=== PATIENT | female | born 1980 | race Hispanic/Latino ===

== ENCOUNTER 2024-10-22 14:48 | Emergency (ER) | payer SELFPAY ==
[2024-10-22 14:52] VITALS: BP 129/85
[2024-10-22 15:12] LABS: % Basophils 0.3 % (0-2); % Eosinophils 0.8 % (0-6); % Immature Granulocytes 0.4 % (0-0.5); % Lymphocytes 13.8 % (20.5-51.1); % Monocytes 6.3 % (1.7-9.3); % Neutrophils 78.4 % (42.2-75.2); Absolute Eosinophils 0.1 10^3/uL (0-0.7); Absolute Immature Granulocytes 0.1 10^3/uL (0-0.05); Absolute Lymphocytes 1.9 10^3/uL (1.2-3.4); Absolute Monocytes 0.8 10^3/uL (0.1-0.6); Absolute Neutrophils 10.5 10^3/uL (1.4-6.5); Hematocrit 42.2 % (37.0-47.0); Hemoglobin 13.7 g/dL (12.0-16.0); Mean Corp Hgb Conc. 32.5 g/dL (33.0-37.0); Mean Corpuscular Hgb 28.2 pg (27.0-31.0); Mean Corpuscular Volume 86.8 fL (81.0-99.0); Mean Platelet Volume 9.9 fL (7.4-10.4); Nucleated Red Blood Cells % 0 %; Platelet Count 230 10^3/uL (130-400); Red Blood Cell Count 4.86 10^6/uL (4.20-5.40); Red Cell Dist. Width 13.8 % (11.5-14.5); White Blood Cell Count 13.4 10^3/uL (4.8-10.8)
[2024-10-22 15:20] LABS: Urine Albumin 2+ (Neg - Trace); Urine Bilirubin Negative (Negative); Urine Character Cloudy (Clear); Urine Color Yellow; Urine Glucose Negative (Negative); Urine Ketone Negative (Negative); Urine Leukocyte 3+ (Negative); Urine Nitrite Negative (Negative); Urine Occult Blood 4+ (Negative); Urine Urobilinogen Negative (Neg - 1+)
[2024-10-22 15:23] LABS: HCG, Serum Qualitative Screen Negative
[2024-10-22 15:27] LABS: ALT (SGPT) 62 U/L (0-35); AST (SGOT) 59 U/L (14-36); Albumin 4.2 g/dl (3.5-5.0); Alkaline Phosphatase 137 U/L (38-126); Blood Urea Nitrogen 14 mg/dl (7-17); Calcium 9.2 mg/dl (8.4-10.2); Carbon Dioxide 25 mmol/L (22-30); Chloride 104 mmol/L (98-107); Glucose 98 mg/dl (70-99); Lipase 303 U/L (23-300); Potassium 4.4 mmol/L (3.5-5.1); Sodium 137 mmol/L (135-145); Total Bilirubin 0.3 mg/dl (0.2-1.3); Total Protein 7.9 g/dl (6.3-8.2); eGFR > 60.00
[2024-10-22 15:39] LABS: Urine Squamous Cell 0-2 /LPF (Few)
[2024-10-22 15:40] LABS: Urine Bacteria Few (Negative); Urine White Cell 50-60 /HPF (0-5)
--- NOTE | 2024-10-22 15:41 | ED.GENMED ---
Addendum entered and electronically signed by Jeffrey Huffman PA-C 10/25/24 07:44:
UCx positive for pansensitive E coli, pt on cefdinir. No changes
Original Note:
History of Present Illness
General
Chief Complaint: Flank Pain
Source: patient
Exam Limitations: none
Time Seen by Provider: 10/22/24 15:41
History of Present Illness
History of Present Illness:
44yoF with no significant past medical history presenting with her for evaluation of flank pain. She started with pain with urination 2 days ago. She also reports that her urine appears cloudy. She developed left flank pain yesterday.
Flank pain is severe and coming in waves. She reports chills but denies any fevers. She is otherwise asymptomatic and denies any nausea, vomiting, diarrhea, constipation. No prior history of similar symptoms in the past.
Phy Exam
Physical Exam
Physical Exam:
Patient tearful due to pain, non-toxic
General Physical Exam
General Presentation: well appearing
General Skin: warm and dry
General Habitus: normal
General Mental: alert
ENT Exam
ENT Exam: normocephalic
Pulmonary Exam
Pulmonary Exam: lungs clear, no respiratory distress, no rales, no crackles and no rhonchi
Gastrointestinal Exam
Gastrointestinal Exam: soft, non distended, cva tenderness and other (+L CVA tenderness. There is mild LLQ tenderness. Abdomen soft, non-distended. No rebound or guarding.)
Neurological Exam
Neurological Exam: alert
[place] Coma Scale
Eye Opening: Spontaneous
Verbal Response: Oriented
Motor Response: Obeys Commands
GCS Total Score: 15
Skin Exam
Skin Exam: normal color and warm/dry
Psychiatric Exam
Psychiatric Exam: normal mood/affect
Course
Orders/Labs/Results
Orders:
Orders
10/22/24 14:56
Test Result ONCE
10/22/24 15:05
Complete Blood Count/With Diff Urgent
Comprehensive Metabolic Panel Urgent
HCG, Serum Qualitative Screen Urgent
Lipase Urgent
Urinalysis Reflex To Culture Urgent
Date Specimen was Collected: 10/22/24
Time Specimen was Collected: 14:56
Urine Microscopic Reflex Cult Urgent
Urine Culture Urgent
AHSAN Source: U
Specimen Description:
Date Specimen was Collected: 10/22/24
Time Specimen was Collected: 14:56
10/22/24 15:59
CT Abd/pel Without Iv Or Oral Urgent
Comment:
Reason For Exam: L flank pain radiating to LLQ
0.9% Sodium Chloride 1000 ml [Nss] 1,000 ml IV BOLUS
HYDROmorphone [Dilaudid] 0.5 mg IV NOW STA
Ketorolac [Toradol] 15 mg IV NOW STA
10/22/24 17:55
CefTRIAXone [Rocephin] 2,000 mg IV NOW STA
10/22/24 18:00
Sterile Water [Sterile Water For Injection] 20 ml .ROUTE .STK-MED
Abnormal Lab Results
10/22/24
15:05
WBC 13.4 H 10^3/uL
(4.8-10.8)
MCHC 32.5 L g/dL
(33.0-37.0)
Abs Immat Gran (auto) 0.1 H 10^3/uL
(0-0.05)
Absolute Neuts (auto) 10.5 H 10^3/uL
(1.4-6.5)
Absolute Monos (auto) 0.8 H 10^3/uL
(0.1-0.6)
Neutrophils % 78.4 H %
(42.2-75.2)
Lymphocytes % 13.8 L %
(20.5-51.1)
AST 59 H U/L
(14-36)
ALT 62 H U/L
(0-35)
Alkaline Phosphatase 137 H U/L
(38-126)
Lipase 303 H U/L
(23-300)
Ur Occult Blood Reflex 4+ A
(Negative)
Leukocyte Esterase Rfl 3+ A
(Negative)
Urine RBC 11-15 A /HPF
(0-2)
Urine WBC (Reflex) 50-60 A /HPF
(0-5)
Urine Bacteria (Reflex) Few A
(Negative)
Urine Albumin (Reflex) 2+ A
(Neg - Trace)
10/22/24 15:05
10/22/24 15:05
Vital Signs
Temp: 97.7 F
Initial and Last Documented VS:
Initial Vital Signs
Temp Pulse Resp BP Pulse Ox
98.9 F 89 20 129/85 100
10/22/24 14:52 10/22/24 14:52 10/22/24 14:52 10/22/24 14:52 10/22/24 14:52
Last Documented Vital Signs
Temp Pulse Resp BP Pulse Ox
97.7 F 75 18 124/74 100
10/22/24 17:57 10/22/24 18:16 10/22/24 18:16 10/22/24 18:16 10/22/24 18:16
MDM/Problems Addressed
Differential Diagnosis Includes:
44yoF here with L flank pain since yesterday. Started with pain with urination 2 days ago. C/o chills, denies fevers. No n/v. VSS. She is tearful on exam due to pain but she is well appearing otherwise and non-toxic. +L CVA tenderness on exam.
Differential diagnosis includes but is not limited to: UTI, pyelonephritis, kidney stone, diverticulitis, musculoskeletal
Initial ED plan: Labs and UA obtained in triage. Leukocytosis noted with a white count of 13.4. Mild transaminitis also present of unclear significance as she has no right upper quadrant tenderness on exam. UA with leukocytes and 4+ blood. Will
obtain CT abdomen without contrast to evaluate for kidney stone. IV Toradol, Dilaudid, and fluid bolus for symptoms.
*Critical Care Note
Total Time (30-74mins, 75-104mins- exclusive of procedures): Not Applicable
Update Note
Update Note:
CT is negative for ureterolithiasis and hydronephrosis. On reassessment, she is feeling significantly improved. Repeat vital signs are stable. Presentation consistent with pyelonephritis. No indication for hospitalization at this time. Dose of
IV Rocephin given in ED and she was started on a course of cefdinir. Supportive care discussed including hydration. Patient does not currently have a PCP or health insurance. She was given the contact information for the [facility] for
follow-up. Strict ED return precautions discussed including fevers, vomiting, or worsening pain. Patient in agreement with plan and was discharged in stable condition.
ED Attending Note
-
Portions of this chart may have been created with voice recognition software.� Occasional wrong word or��sound alike� substitutions may have occurred due to the inherent limitations of voice recognition software.
Discharge Plan
Departure
Patient Disposition: Home (Routine Discharge)
Date of Disposition: 10/22/24
Time of Disposition: 17:57
Patient with high blood pressure during this ER visit?: No
Discharge Problem:
Pyelonephritis
Instructions: Urinary tract infections in adults
Prescriptions:
New
cefdinir 300 mg capsule
300 mg PO BID Qty: 14 0RF
Referrals:
[facility] [Provider Group]
[facility] [Outside]
NONE,* [Family Provider] -
Activity Restrictions/Additional Instructions:
Take antibiotics as prescribed. Drink plenty of fluids. Take Tylenol and ibuprofen as needed for pain.
Please follow-up with a family doctor. Return to the ER with any worsening symptoms, fevers, severe pain, vomiting, or if you do not improve in 3-4 days.
Interventions
Interventions:
*Risk Screen - Suicide Last Done: 10/22/24 14:52
*General Assessment Last Done: 10/22/24 14:52
*Neglect/Abuse Screening Last Done: 10/22/24 15:39
*ED COVID-19 Vaccine History Last Done: 10/22/24 14:52
SF-Hapkib-Ngrdalhxtz Assessment Last Done: 10/22/24 16:14
ED-Female Genitourinary Assessment Last Done: 10/22/24 16:14
Discharge Date and Time
Print Language: GREENLANDIC
[2024-10-22] MEDS: NSS 1000 IV (16:10)
[2024-10-22] MEDS: DILAUDID 0.5 MG IV (16:10)
[2024-10-22] MEDS: TORADOL 15 MG IV (16:10)
[2024-10-22] MEDS: ROCEPHIN 2000 MG IV (18:06)
[2024-10-22 18:16] VITALS: BP 124/74
== END 2024-10-22 18:18 | disposition home or self-care (01) ==
LOC: EMR 14:48
PROVIDERS: Student in an Organized Health Care Education/Training Program; EMERGENCY PHYSICIAN Emergency Medicine
DX: N10 Acute pyelonephritis (principal); Z59.71 Insufficient health insurance coverage
CPT/HCPCS: 99284; 96374; 96375 ×2; 96361; 74176; 80053; 81003; 81015; 83690; 84703; 85025; 87077; 87086; 87186